=== PATIENT | male | born 1960 | race Caucasian/White ===

== ENCOUNTER 2019-08-21 00:32 | Outpatient (CLI) | payer OTHER, SELFPAY ==
[2019-08-21 18:58] LABS: SARS-CoV-2 RNA PCR Negative
== END 2019-08-21 00:33 | disposition home or self-care (01) ==
LOC: ANHCOVIDDT 00:33
PROVIDERS: PCP Internal Medicine; Visit Provider Internal Medicine Gastroenterology
DX: Z01.812 Encounter for preprocedural laboratory examination (principal); Z20.828 Contact with and (suspected) exposure to other viral communicable diseases
CPT/HCPCS: 87635; C9803; U0003

== ENCOUNTER 2019-08-23 00:36 | Day surgery (SDC) | payer OTHER, SELFPAY ==
[2019-08-13 14:42] VITALS: BMI 23.1
--- NOTE | 2019-08-13 14:49 | PC.NURSE ---
INSTRUCTED PATIENT ON WHEN/WHERE TO GET COVID-19 TESTING COMPLETED. JESSICA HUMPHREY
[2019-08-23 06:32] VITALS: BP 122/77; PULSE 70; RESP 16; TEMP 36.1; O2SAT 96; BMI 23.3
[2019-08-23] MEDS: LACTATED RINGERS 1,000 ML 150 ML IV CONT (06:46)
--- NOTE | 2019-08-23 06:59 | PM.HPGS ---
History of Present Illness History of Present Illness Consent: Risks, benefits, and alternatives have been discussed and questions answered. Patient agrees to proceed with procedure. Chief complaint: neoplasm Screening Narrative: Eddy Washington is a 59 year old W male Referred for screening colonoscopy. Patient's last colonoscopy was 10 years ago. Patient is asymptomatic there is no known family history of colon polyps or colon cancer. [facility] Past Medical History Medical History (Updated 08/23/19 @ 07:00 by J Luis Tillman MD) Hypertension Surgical History Surgical History (Updated 08/23/19 @ 07:01 by J Luis Tillman MD) Status post ablation of atrial fibrillation Status post right inguinal herniorrhaphy Status post tonsillectomy and adenoidectomy Social History Social History Gender identity (if verbalized by the patient): Male Meds Home Medications and Allergies Home Medications Medication Instructions Recorded Confirmed Type amlodipine 10 mg PO DAILY 08/13/19 08/13/19 History ascorbate calcium (vitamin C) 500 mg PO DAILY 08/13/19 08/13/19 History aspirin 81 mg PO DAILY 08/13/19 08/13/19 History calcium carbonate [Calcium 600] 600 mg PO DAILY 08/13/19 08/13/19 History cholecalciferol (vitamin D3) 250 mcg PO DAILY 08/13/19 08/13/19 History [Vitamin D3] coQ10 (ubiquinol) 200 mg PO DAILY 08/13/19 08/13/19 History irbesartan 150 mg PO BID 08/13/19 08/13/19 History magnesium oxide 1,000 mg PO DAILY 08/13/19 08/13/19 History mecobalamin (vitamin B12) 3,000 mcg PO DAILY 08/13/19 08/13/19 History milk thistle 500 mg PO DAILY 08/13/19 08/13/19 History vitamin B complex [Super B-50 1 cap PO DAILY 08/13/19 08/13/19 History Complex] Allergies Allergy/AdvReac Type Severity Reaction Status Date / Time No Known Allergies Allergy Verified 08/23/19 06:46 Vital Signs Vital Signs - 24 hr 08/23/19 06:32 Temperature 36.1 C L Pulse Rate 70 Respiratory Rate 16 Blood Pressure 122/77 Pulse Oximetry 96 Exam Const: Orientation/consciousness: patient oriented x3 Resp: Auscultation: clear to auscultation bilaterally Cardio: Rate: regular rate Rhythm: regular rhythm Heart sounds: no murmurs GI: GI Palp: Yes Soft to palpation, No Tenderness to palpation present (GI), Yes No hepatosplenomegaly present and No Palpable mass present Auscultation: normal bowel sounds Neuro: General: patient oriented x3 and no focal motor deficits Extrem: General: no pedal edema Assessment and Plan Additional Plan screening colonoscopy in average risk patient
--- NOTE | 2019-08-23 07:06 | WPDANESEPPF ---
Anes - Initial Pre Proc Eval Procedure: Operation Date: 08/23/19 07:30 Proposed Procedures p Colonoscopy - J Luis Tillman MD Date/Time: 08/23/19 07:06 Surgeon: J Luis Tillman MD Pre Op Diagnosis: neoplasm Screening Patient Data Age: 59 Gender: M Height: 6 ft 2 in Weight: 82.4 kg Last Vital Signs Temp 97 F L 08/23/19 06:32 Pulse 70 08/23/19 06:32 Resp 16 08/23/19 06:32 BP 122/77 08/23/19 06:32 Pulse Ox 96 08/23/19 06:32 Allergies Allergy/AdvReac Type Severity Reaction Status Date / Time No Known Allergies Allergy Verified 08/23/19 06:46 Home Medications Medication Instructions Recorded Confirmed Type amlodipine 10 mg PO DAILY 08/13/19 08/13/19 History ascorbate calcium (vitamin C) 500 mg PO DAILY 08/13/19 08/13/19 History aspirin 81 mg PO DAILY 08/13/19 08/13/19 History calcium carbonate [Calcium 600] 600 mg PO DAILY 08/13/19 08/13/19 History cholecalciferol (vitamin D3) 250 mcg PO DAILY 08/13/19 08/13/19 History [Vitamin D3] coQ10 (ubiquinol) 200 mg PO DAILY 08/13/19 08/13/19 History irbesartan 150 mg PO BID 08/13/19 08/13/19 History magnesium oxide 1,000 mg PO DAILY 08/13/19 08/13/19 History mecobalamin (vitamin B12) 3,000 mcg PO DAILY 08/13/19 08/13/19 History milk thistle 500 mg PO DAILY 08/13/19 08/13/19 History vitamin B complex [Super B-50 1 cap PO DAILY 08/13/19 08/13/19 History Complex] Patient hx anesthesia problems: none Family hx anesthesia problems: none PMFSH Past Medical History Medical History (Updated 08/23/19 @ 07:00 by J Luis Tillman MD) Hypertension Surgical History Surgical History (Updated 08/23/19 @ 07:05 by Tao Gonzalez MD) Status post ablation of atrial fibrillation had ablation done; no problems since Status post right inguinal herniorrhaphy Status post tonsillectomy and adenoidectomy Social History Social History Gender identity (if verbalized by the patient): Male Anes - Eval Final PreProcedure Day of Procedure 08/23/19 07:06 Patient weight: normal Heart: regular rate and rhythm Lungs: clear to auscultation Airway: Mallampati scale class II Neurological: alert and oriented Last oral intake: >/= 8 hours ASA classification: II Emergent: no Anesthetic plan: proceed Anesthesia type and monitoring: general GIVS and standard monitoring Informed Consent: The patient's anesthetic plan and its attendant risks and benefits were discussed with the patient/family/POA. Questions were solicited and answers provided to the satisfaction of the patient/family/POA.
[2019-08-23 07:41] VITALS: BP 96/60; PULSE 52; RESP 20; O2SAT 97
[2019-08-23 07:51] VITALS: BP 101/63; PULSE 48; RESP 14; O2SAT 99
[2019-08-23 08:01] VITALS: BP 112/71; PULSE 55; O2SAT 98
== END 2019-08-23 08:37 | disposition home or self-care (01) ==
PROVIDERS: PCP Internal Medicine; Visit Provider Internal Medicine Gastroenterology
PROC: 0DJD8ZZ Inspection of Lower Intestinal Tract, Via Natural or Artificial Opening Endoscopic (ICD-10-PCS; CPT 45378; principal; 2019-08-23 07:30)
DX: Z12.11 Encounter for screening for malignant neoplasm of colon (principal); K57.30 Diverticulosis of large intestine without perforation or abscess without bleeding; K64.8 Other hemorrhoids; I10 Essential (primary) hypertension; E78.5 Hyperlipidemia, unspecified
CPT/HCPCS: G0121; J2704; J7120